=== PATIENT | female | born 1970 | race Caucasian/White ===

== ENCOUNTER 2016-09-17 17:32 | Emergency (ER) | payer MEDICAID ==
[2016-09-17 17:36] VITALS: RESP 16; TEMP 98.4
--- NOTE | 2016-09-17 17:51 | EDPHY ---
H & P Time Seen by Provider: 09/17/16 17:49 HPI/ROS: CHIEF COMPLAINT: Neck pain HISTORY OF PRESENT ILLNESS: The patient is a 45-year-old female with history of chronic neck pain from an injury 2 years ago, who presents today with worsened neck pain. The patient has been taking Vicodin once a day as needed for the pain. The Vicodin is no longer helping her pain. She states the pain has gotten worse and causing headaches. The pain radiates down her right arm. She has associated nausea secondary to pain. She is followed by a neurologist and a pain specialist for this pain. She denies extremity weakness or numbness. REVIEW OF SYSTEMS: A comprehensive 10 point review of systems is otherwise negative aside from elements mentioned in the history of present illness. Past Medical/Surgical History: Herniated disc Smoking Status: Never smoked Physical Exam: General Appearance: Alert, pleasant Eyes: Pupils equal and round, no conjunctival pallor ENT, Mouth: Mucous membranes moist Neck: Normal inspection, right paraspinous tenderness, no midline tenderness Respiratory: Lungs are clear to auscultation Cardiovascular: Regular rate and rhythm Gastrointestinal: Abdomen is soft and non-tender Neurological: Alert, motor/sensory intact in the upper and extremities Skin: Warm and dry, no rash Extremities: Normal inspection Psychiatric: Mood and affect normal Constitutional: Initial Vital Signs Temperature (C) 36.9 C 09/17/16 17:34 Heart Rate 92 09/17/16 17:34 Respiratory Rate 16 09/17/16 17:34 Blood Pressure 132/88 H 09/17/16 17:34 O2 Sat (%) 98 09/17/16 17:34 O2 Delivery Mode Room Air Allergies/Adverse Reactions: tree and shrub pollen Allergy (Verified 09/17/16 17:36) Home Medications: Medication Instructions Recorded Clonazepam 2 mg PO HS 04/19/11 Methylphenidate HCl [Ritalin] 20 mg PO BID 04/19/11 Cephalexin [Keflex (RX)] 500 mg PO QID 07/24/11 GABAPENTIN 100 mg PO 07/24/11 Zolpidem Tartrate [Ambien (RX)] 10 mg 07/24/11 Diazepam [Valium 5 MG (*)] 5 mg PO Q6 PRN #15 tab 09/17/16 Lidocaine 5% [Lidoderm 5% Patch 1 ea TD DAILY #20 patch 09/17/16 (*)] methylPREDNISolone [Medrol Dose 1 each PO AD #1 ea 09/17/16 Ruddy] Medical Decision Making ED Course/Re-evaluation: The patient has history of herniated disc from an injury. She comes to the ED today with increased cervical pain. On exam patient has right paraspinous tenderness. Plan to discharge home with Lidoderm patch, Valium, and Medrol dose pack. She will follow up with her primary care physician and pain medicine specialist. - Data Points Medications Given: Discontinued Medications Diazepam (Valium) 5 mg PO EDNOW ONE Stop: 09/17/16 18:07 Last Admin: 09/17/16 18:38 Dose: 5 mg Lidocaine (Lidoderm 5%) 1 ea TD EDNOW ONE Stop: 09/17/16 18:07 Last Admin: 09/17/16 18:38 Dose: 1 ea Departure - Departure Disposition: Home, Routine, Self-Care Clinical Impression: Cervical radiculopathy Condition: Good Instructions: Cervical Radiculopathy (ED) Additional Instructions: Followup with your primary care physician for further evaluation. If neck pain persists, followup with your neurologist. Use the Lidoderm patch as directed. Take Valium as prescribed for muscle spasm. Take full Medrol dose pack to help with pain. Take 400mg Ibuprofen every 6-8 hours as needed for pain. Referrals: Jaleel Mckeon MD [Medical Doctor] - As per Instructions Prescriptions: Diazepam [Valium 5 MG (*)] 5 mg PO Q6 PRN #15 tab PRN Reason: muscle spasm Lidocaine 5% [Lidoderm 5% Patch (*)] 1 ea TD DAILY #20 patch methylPREDNISolone [Medrol Dose Ruddy] 1 each PO AD #1 ea Report Scribed for: Amisha King Report Scribed by: Miranda Dover Date of Report: 09/17/16 Time of Report: 17:50 Physician Review and Approval Statement: 09/17/16 17:50 Portions of this note were transcribed by a biomedical service engineer. I personally performed the history, physical exam, and medical decision-making; and confirmed the accuracy of the information in the transcribed note.
[2016-09-17] MEDS ORDERED: DIAZEPAM 5 MG TAB PO ONE (18:06)
[2016-09-17] MEDS ORDERED: LIDOCAINE 5% 1 EA PATCH TD ONE (18:06)
[2016-09-17 18:56] VITALS: BP 129/72; PULSE 70; O2SAT 94
[2016-09-17] MEDS ORDERED: PATCH REMOVAL 1 EA PATCH TD SCH (21:00)
== END 2016-09-17 18:56 | disposition home or self-care (01) ==
DX: M54.12 Radiculopathy, cervical region (principal)